=== PATIENT | male | born 1970 | race Hispanic/Latino ===

== ENCOUNTER 2020-01-14 14:00 | Inpatient (IN) | payer OTHER ==
[~2020-01-14] VITALS: Ht 170.2 cm; Wt 74.4 kg
[2020-01-14] VITALS (17 sets, daily range): BP systolic 87–122; BP diastolic 45–67
[2020-01-14 14:40] LABS: BASOPHILS % (AUTO) 0.3 % (0.0-5.0); EOSINOPHILS % (AUTO) 0.2 % (0.0-8.0); HEMATOCRIT 24.6 % (42-54); LYMPHOCYTES % (AUTO) 20.2 % (21.0-51.0); MEAN CORPUSCULAR HEMOGLOBIN 31.8 pg (27.0-33.0); MEAN CORPUSCULAR HGB CONC 32.9 g/dL (32.0-36.0); MEAN CORPUSCULAR VOLUME 96.5 fL (79-99); MONOCYTES % (AUTO) 8.6 % (3.0-13.0); NEUTROPHILS % (AUTO) 68.8 % (40.0-77.0); NUCLEATED RED BLOOD CELLS 0.2 % (0.0-0.19); PLATELET COUNT (AUTO) 227 K/uL (130-400); RED BLOOD CELL COUNT(AUTO) 2.55 MIL/uL (4.50-6.20); RED CELL DISTRIBUTION WIDTH 16.4 % (11.0-15.5); WHITE BLOOD COUNT (AUTO) 18.2 K/uL (4.8-10.8)
[2020-01-14 14:51] LABS: INR 1.18 (0.85-1.15); PARTIAL THROMBOPLASTIN TIME 26.7 SEC (26.3-35.5); PROTHROMBIN TIME 12.7 SEC (9.6-11.6)
[2020-01-14] MEDS ORDERED: ONDANSETRON HCL 4 MG/2 ML VIAL ONE ×2 (14:52→16:32)
[2020-01-14] MEDS ORDERED: PANTOPRAZOLE 40 MG/VIAL ONE (14:53)
[2020-01-14] MEDS ORDERED: PHYTONADIONE 10 MG/1 ML AMP ONE (14:53)
[2020-01-14] MEDS ORDERED: CEFTRIAXONE SODIUM 1 GM ONE (14:53)
[2020-01-14 14:54] LABS: ALBUMIN 2.2 g/dL (3.5-5.0); ALCOHOL, BLOOD < 3 mg/dL (0-10); AMMONIA 32 umol/L (11-32); ASPARTATE AMINOTRANSFERASE 132 U/L (10-37); BILIRUBIN,TOTAL 1.4 mg/dL (0.2-1.0); CARBON DIOXIDE 23 mmol/L (21-32); CHLORIDE 102 mmol/L (101-111); CREATINE KINASE, TOTAL 86 U/L (21-232); CREATININE 1.5 mg/dL (0.5-1.5); GLOMERULAR FILTR. RATE CALC 53 mL/min (>60); LIPASE 83 U/L (114-286); SODIUM SERUM 134 mmol/L (136-145); TOTAL PROTEIN, SERUM 5.6 g/dL (6.0-8.3); UREA NITROGEN, BLOOD 30 mg/dL (7-18)
[2020-01-14] MEDS ORDERED: SODIUM CHLORIDE 0.9% 100 ML IV ONE ×2 (14:54)
[2020-01-14 14:57] LABS: GLUCOSE,RANDOM 487 mg/dL (70-105)
[2020-01-14] MEDS ORDERED: OCTREOTIDE ACETATE 100 MCG/ML AMP IVP SCH (15:00)
[2020-01-14] MEDS ORDERED: OCTREOTIDE 1,250 MCG /NS 250ML (DRIP) IV SCH ×2 (15:00)
[2020-01-14] MEDS ORDERED: METOCLOPRAMIDE 10 MG/2 ML VIAL ONE (15:25)
[2020-01-14] MEDS ORDERED: OCTREOTIDE ACETATE 100 MCG/ML AMP ONE (15:26)
[2020-01-14 15:43] LABS: ALANINE AMINOTRANSFERASE 103 U/L (12-78)
[2020-01-14 16:11] LABS: APPEARANCE,URINE CLEAR (CLEAR); BILIRUBIN,URINE NEGATIVE (NEGATIVE); COLOR,URINE YELLOW (YELLOW); GLUCOSE, URINE (UA) >=1000 mg/dL (NEGATIVE); KETONES,URINE NEGATIVE (NEGATIVE); LEUKOCYTE ESTERASE ,URINE NEGATIVE (NEGATIVE); NITRATE,URINE NEGATIVE (NEGATIVE); OCCULT BLOOD,URINE NEGATIVE (NEGATIVE); PROTEIN,URINE NEGATIVE (NEGATIVE); UROBILINOGEN,URINE 0.2 mg/dL (0.2-1.0)
[2020-01-14 16:30] LABS: BACTERIA,URINE Rare /HPF (None Seen); RBC,URINE 0-1 /HPF (0-1); SQUAMOUS EPITHELIAL CELL,UR Rare /HPF (0-2); WBC,URINE 0-1 /HPF (0-1)
[2020-01-14] MEDS ORDERED: PROPOFOL 10 MG/ML 20ML VIAL IV ONE (16:32)
[2020-01-14] MEDS ORDERED: MIDAZOLAM HCL 1 MG/ML 2ML VIAL ONE (16:32)
[2020-01-14] MEDS ORDERED: LIDOCAINE HCL 1% 20 ML VIAL ONE (16:32)
[2020-01-14] MEDS ORDERED: FENTANYL CITRATE PF 50 MCG/1 ML 2ML VIAL ONE (16:32)
[2020-01-14] MEDS ORDERED: SUCCINYLCHOLINE CHLORIDE 20 MG/ML 10 ML VIAL ONE (16:33)
[2020-01-14] MEDS: INSULIN HUMULIN R 100 UNIT/ML 3ML SQ SCH (18:00)
[2020-01-14] MEDS ORDERED: ONDANSETRON HCL 4 MG/2 ML VIAL IV PRN (18:00)
[2020-01-14] MEDS ORDERED: LACTULOSE 20 GM/30 ML UDCUP PO PRN (18:00)
[2020-01-14] MEDS ORDERED: PANTOPRAZOLE SODIUM 80 MG in SODIUM CHLORIDE 0.9% 100 ML IV SCH (18:00)
[2020-01-14] MEDS ORDERED: OCTREOTIDE ACETATE 1,250 MCG in SODIUM CHLORIDE 0.9% 250 ML IV SCH (18:00)
[2020-01-14 18:18] LABS: HEMOGLOBIN A1C 9.7 % (4.0-6.0)
[2020-01-14] MEDS: ZOSYN 3.375GM+NS 50ML 50 ML IV SCH (20:00)
[2020-01-14 20:34] LABS: HEMATOCRIT 20.7 % (42-54)
[2020-01-14] MEDS: SODIUM CHLORIDE 0.9% 1000ML 1,000 ML IV SCH (21:00)
[2020-01-14] MEDS ORDERED: SODIUM CHLORIDE 0.9% 500ML 500 ML IV ONE (21:08)
[2020-01-14 21:13] LABS: ABG BASE EXCESS -0.4 mmol/L (-2.0-3.0); ABG OXYGEN SATURATION 95.7 % (95.0-99.0); ABG PCO2 34 mmHg (35-48)
[2020-01-15] VITALS (7 sets, daily range): BP systolic 90–97; BP diastolic 53–68
[2020-01-15] MEDS: SODIUM CHLORIDE 0.9% 1000ML 1,000 ML IV SCH ×10 (03:43→16:53)
[2020-01-15 04:23] LABS: BASOPHILS % (AUTO) 0.6 % (0.0-5.0); EOSINOPHILS % (AUTO) 1.3 % (0.0-8.0); HEMATOCRIT 22.2 % (42-54); LYMPHOCYTES % (AUTO) 40.6 % (21.0-51.0); MEAN CORPUSCULAR HEMOGLOBIN 30.6 pg (27.0-33.0); MEAN CORPUSCULAR HGB CONC 32.4 g/dL (32.0-36.0); MEAN CORPUSCULAR VOLUME 94.5 fL (79-99); MONOCYTES % (AUTO) 7.8 % (3.0-13.0); NEUTROPHILS % (AUTO) 48.3 % (40.0-77.0); NUCLEATED RED BLOOD CELLS 0.2 % (0.0-0.19); PLATELET COUNT (AUTO) 139 K/uL (130-400); RED BLOOD CELL COUNT(AUTO) 2.35 MIL/uL (4.50-6.20); RED CELL DISTRIBUTION WIDTH 15.9 % (11.0-15.5); WHITE BLOOD COUNT (AUTO) 12.5 K/uL (4.8-10.8)
[2020-01-15 04:49] LABS: ALBUMIN 1.9 g/dL (3.5-5.0); BILIRUBIN,TOTAL 1.3 mg/dL (0.2-1.0); CRP QUANTITATIVE 16.5 mg/L (0.00-9.0); TOTAL PROTEIN, SERUM 4.6 g/dL (6.0-8.3)
[2020-01-15] MEDS ORDERED: LACTULOSE 20 GM/30 ML UDCUP PO SCH (05:30)
[2020-01-15] MEDS: INSULIN HUMULIN R 100 UNIT/ML 3ML SQ SCH ×4 (06:00→18:04)
[2020-01-15] MEDS: ZOSYN 3.375GM+NS 50ML 50 ML IV SCH ×2 (06:38→18:04)
[2020-01-15] MEDS ORDERED: LORAZEPAM 2 MG/ML 1 ML VIAL IVP PRN ×2 (09:15)
[2020-01-15] MEDS ORDERED: CHLORDIAZEPOXIDE HCL 25 MG CAP PO PRN ×2 (09:15)
[2020-01-15] MEDS ORDERED: ONDANSETRON HCL 4 MG/2 ML VIAL IV PRN (09:15)
[2020-01-15] MEDS ORDERED: COMPOUND IV REFRIGERATED 1 EACH IVSOLN MISC PRN (09:15)
[2020-01-15] MEDS ORDERED: PROMETHAZINE HCL 25 MG TABLET PO PRN (09:15)
[2020-01-15] MEDS ORDERED: PHARMACY COMMUNICATION MISC PRN (09:15)
[2020-01-15] MEDS: PANTOPRAZOLE SODIUM 40 MG TABLET.DR PO SCH ×2 (09:56→20:36)
[2020-01-15 18:04] LABS: HEMATOCRIT 22.5 % (42-54)
[2020-01-15] MEDS: LACTULOSE 20 GM/30 ML UDCUP PO SCH (20:36)
[2020-01-16] VITALS: BP 103/67
[2020-01-16 00:41] LABS: HEMATOCRIT 22.3 % (42-54)
[2020-01-16 04:53] LABS: BASOPHILS % (AUTO) 0.7 % (0.0-5.0); EOSINOPHILS % (AUTO) 2.3 % (0.0-8.0); HEMATOCRIT 21.1 % (42-54); LYMPHOCYTES % (AUTO) 37.4 % (21.0-51.0); MEAN CORPUSCULAR HEMOGLOBIN 30.9 pg (27.0-33.0); MEAN CORPUSCULAR HGB CONC 32.7 g/dL (32.0-36.0); MEAN CORPUSCULAR VOLUME 94.6 fL (79-99); MONOCYTES % (AUTO) 9.1 % (3.0-13.0); NEUTROPHILS % (AUTO) 49.5 % (40.0-77.0); NUCLEATED RED BLOOD CELLS 0.3 % (0.0-0.19); PLATELET COUNT (AUTO) 134 K/uL (130-400); RED BLOOD CELL COUNT(AUTO) 2.23 MIL/uL (4.50-6.20); RED CELL DISTRIBUTION WIDTH 15.9 % (11.0-15.5); WHITE BLOOD COUNT (AUTO) 7.3 K/uL (4.8-10.8)
[2020-01-16 05:19] LABS: ALBUMIN 1.9 g/dL (3.5-5.0); BILIRUBIN,TOTAL 1.6 mg/dL (0.2-1.0); POTASSIUM 3.3 mmol/L (3.5-5.1); TOTAL PROTEIN, SERUM 4.8 g/dL (6.0-8.3)
[2020-01-16 05:27] VITALS: BP 96/69
[2020-01-16] MEDS: ZOSYN 3.375GM+NS 50ML 50 ML IV SCH ×2 (05:46→21:35)
[2020-01-16] MEDS: SODIUM CHLORIDE 0.9% 1000ML 1,000 ML IV SCH ×3 (05:46→19:54)
[2020-01-16] MEDS: INSULIN HUMULIN R 100 UNIT/ML 3ML SQ SCH ×5 (06:00→21:34)
[2020-01-16] MEDS ORDERED: SODIUM CHLORIDE 0.9% 250 ML IV ONE (06:11)
--- NOTE | 2020-01-16 06:30 | NUR ---
HEMOGLOBIN 6.9, STARTED 1 UNIT OF PRBCs.
--- NOTE | 2020-01-16 06:50 | NUR ---
PT CONTINUING WITH BLOOD TRANSFUSION, NO ADVERSE REACTIONS NOTED. VITALS WNL.
--- NOTE | 2020-01-16 07:15 | NUR ---
ASSESSMENT PT [id number] NO COMPLAINTS OF PAIN , NO SOB, NO NEURO DEFECTS, BLOOD IS STILL INFUSING WILL CONTINUE TO MONITOR PATIENT.
[2020-01-16 08:15] LABS: HEPATITIS A ANTIBODY IGM Negative (Negative); HEPATITIS B CORE IGM Negative (Negative); HEPATITIS Bs ANTIGEN SCREEN P Negative (Negative)
[2020-01-16] MEDS: FOLIC ACID 1 MG TABLET PO SCH (09:07)
[2020-01-16] MEDS: MULTIVITAMIN TABLET PO SCH (09:07)
[2020-01-16] MEDS: LACTULOSE 20 GM/30 ML UDCUP PO SCH ×2 (09:08→21:31)
[2020-01-16] MEDS: PANTOPRAZOLE SODIUM 40 MG TABLET.DR PO SCH ×2 (09:08→21:33)
[2020-01-16] MEDS ORDERED: POTASSIUM CHLORIDE 10% ELIXIR 20 MEQ/15 ML UDCUP PO PRN (10:00)
[2020-01-16] MEDS ORDERED: POTASSIUM CHLORIDE 20MEQ/100ML 100 ML IV PRN (10:00)
[2020-01-16] MEDS ORDERED: LIDOCAINE HCL-MPF 1% 2ML VIAL IV PRN (10:00)
[2020-01-16] MEDS: POTASSIUM CHLORIDE 20 MEQ ERTAB PO PRN ×2 (10:40→22:45)
[2020-01-16 12:00] VITALS: BP 107/70
[2020-01-16 12:19] LABS: HEMATOCRIT 24.5 % (42-54)
[2020-01-16] MEDS ORDERED: PHARMACY COMMUNICATION MISC SCH (15:30)
[2020-01-16 16:00] VITALS: BP 126/75
--- NOTE | 2020-01-16 16:05 | NUR ---
CM NOTE WENT TO DO IA EARLIER, COINCIDED W DR. DIANA VISIT, WILL FOLLOW UP LATER. PT AWAKE AND TALKATIVE IN NO APPARENT DISTRESS S/P BANDNG OF VARICIES, DETAILED CM ASSESSMENT DEFERRED AT THIS TIME -1WILL FOLLOW UP IN AM FOR IA
[2020-01-16 19:33] VITALS: BP 107/63
[2020-01-16 23:27] VITALS: BP 114/79
[2020-01-17 04:04] VITALS: BP 104/65
[2020-01-17 05:39] LABS: BASOPHILS % (AUTO) 0.4 % (0.0-5.0); EOSINOPHILS % (AUTO) 2.1 % (0.0-8.0); HEMATOCRIT 24.3 % (42-54); LYMPHOCYTES % (AUTO) 32.8 % (21.0-51.0); MEAN CORPUSCULAR HEMOGLOBIN 30.5 pg (27.0-33.0); MEAN CORPUSCULAR HGB CONC 33.3 g/dL (32.0-36.0); MEAN CORPUSCULAR VOLUME 91.4 fL (79-99); MONOCYTES % (AUTO) 10.2 % (3.0-13.0); NEUTROPHILS % (AUTO) 53.5 % (40.0-77.0); PLATELET COUNT (AUTO) 120 K/uL (130-400); RED BLOOD CELL COUNT(AUTO) 2.66 MIL/uL (4.50-6.20); RED CELL DISTRIBUTION WIDTH 15.7 % (11.0-15.5); WHITE BLOOD COUNT (AUTO) 5.2 K/uL (4.8-10.8)
[2020-01-17] MEDS: INSULIN HUMULIN R 100 UNIT/ML 3ML SQ SCH ×3 (06:00→17:38)
[2020-01-17 06:04] LABS: BILIRUBIN,TOTAL 2.7 mg/dL (0.2-1.0); POTASSIUM 3.3 mmol/L (3.5-5.1); TOTAL PROTEIN, SERUM 4.9 g/dL (6.0-8.3)
[2020-01-17] MEDS: SODIUM CHLORIDE 0.9% 1000ML 1,000 ML IV SCH ×2 (06:38→16:15)
[2020-01-17] MEDS: POTASSIUM CHLORIDE 20 MEQ ERTAB PO PRN ×3 (06:50→18:54)
[2020-01-17] MEDS: CEFTRIAXONE SODIUM 1 GM IVP SCH (08:25)
[2020-01-17] MEDS: PANTOPRAZOLE SODIUM 40 MG TABLET.DR PO SCH ×2 (08:26→21:53)
[2020-01-17] MEDS: FOLIC ACID 1 MG TABLET PO SCH (08:26)
[2020-01-17] MEDS: MULTIVITAMIN TABLET PO SCH (08:26)
[2020-01-17] MEDS: LACTULOSE 20 GM/30 ML UDCUP PO SCH ×2 (08:26→21:00)
[2020-01-17 09:36] VITALS: BP 107/61
[2020-01-17 12:39] VITALS: BP 128/73
[2020-01-17 16:12] LABS: HEMATOCRIT 26.5 % (42-54)
[2020-01-17 16:32] VITALS: BP 106/63
--- NOTE | 2020-01-17 18:35 | NUR ---
PATIENT STATES HE SHOULD BE TAKING TWO PRESCRIBED MEDICATIONS, ONE FOR DIABETES AND 1 FOR PTSD. HOWEVER HE STATES HE DOES NOT GO BUY THEM AND ONLY DOES SO WHEN HIS FRIEND REMINDS HIM TO BUY THEM. REPORTED OFF TO ANASTASIIA CORTÉS PRIMARY NURSE.
[2020-01-17 20:07] VITALS: BP 105/63
[2020-01-17] MEDS: PROPRANOLOL HCL 10 MG TAB PO SCH (21:53)
[2020-01-17 23:58] VITALS: BP 93/57
[2020-01-18] VITALS (7 sets, daily range): BP systolic 80–109; BP diastolic 48–72
[2020-01-18] MEDS: SODIUM CHLORIDE 0.9% 1000ML 1,000 ML IV SCH ×3 (01:54→20:43)
[2020-01-18 05:22] LABS: BASOPHILS % (AUTO) 0.5 % (0.0-5.0); EOSINOPHILS % (AUTO) 2.5 % (0.0-8.0); HEMATOCRIT 26.9 % (42-54); LYMPHOCYTES % (AUTO) 28.1 % (21.0-51.0); MEAN CORPUSCULAR HEMOGLOBIN 30.8 pg (27.0-33.0); MEAN CORPUSCULAR HGB CONC 33.8 g/dL (32.0-36.0); MEAN CORPUSCULAR VOLUME 91.2 fL (79-99); MONOCYTES % (AUTO) 10.8 % (3.0-13.0); NEUTROPHILS % (AUTO) 57.5 % (40.0-77.0); PLATELET COUNT (AUTO) 147 K/uL (130-400); RED BLOOD CELL COUNT(AUTO) 2.95 MIL/uL (4.50-6.20); RED CELL DISTRIBUTION WIDTH 15.1 % (11.0-15.5); WHITE BLOOD COUNT (AUTO) 6.3 K/uL (4.8-10.8)
[2020-01-18 05:44] LABS: BILIRUBIN,TOTAL 3.3 mg/dL (0.2-1.0); CREATININE 0.9 mg/dL (0.5-1.5); POTASSIUM 3.6 mmol/L (3.5-5.1); TOTAL PROTEIN, SERUM 5.1 g/dL (6.0-8.3)
[2020-01-18] MEDS: INSULIN HUMULIN R 100 UNIT/ML 3ML SQ SCH ×5 (06:00→21:29)
[2020-01-18] MEDS: MULTIVITAMIN TABLET PO SCH (08:23)
[2020-01-18] MEDS: PANTOPRAZOLE SODIUM 40 MG TABLET.DR PO SCH ×2 (08:23→20:43)
[2020-01-18] MEDS: FOLIC ACID 1 MG TABLET PO SCH (08:24)
[2020-01-18] MEDS: CEFTRIAXONE SODIUM 1 GM IVP SCH (08:24)
[2020-01-18] MEDS: PROPRANOLOL HCL 10 MG TAB PO SCH ×2 (08:24→20:43)
[2020-01-18] MEDS: LACTULOSE 20 GM/30 ML UDCUP PO SCH ×2 (08:25→20:43)
--- NOTE | 2020-01-18 17:06 | NUR ---
DR. DAS SENIOR PROJECT MANAGER EVALUATED THE PT ON BEDSIDE, NO CHANGES OR ORDERS AT THE MOMENT. PT WITH NO RESPIRATORY DISTRESS OR COMPLICATION.
[2020-01-18] MEDS: POTASSIUM CHLORIDE 20 MEQ ERTAB PO PRN (17:30)
[2020-01-19 00:16] VITALS: BP 101/62
--- NOTE | 2020-01-19 02:32 | NUR ---
ACTIVITY Pt up ad wanda,he states he's eating well and having normal stools.He said he's going home today.He didn't want his IVF be hooked up.
[2020-01-19 03:00] VITALS: BP 82/54
--- NOTE | 2020-01-19 04:00 | NUR ---
BP Pts bp 82/54,pt awake,alert,asymptomatic.Started a new iv to rt forearm,karli well.
[2020-01-19 04:38] LABS: BASOPHILS % (AUTO) 0.4 % (0.0-5.0); EOSINOPHILS % (AUTO) 2.3 % (0.0-8.0); HEMATOCRIT 26.7 % (42-54); LYMPHOCYTES % (AUTO) 30.4 % (21.0-51.0); MEAN CORPUSCULAR HEMOGLOBIN 30.4 pg (27.0-33.0); MEAN CORPUSCULAR HGB CONC 33.7 g/dL (32.0-36.0); MEAN CORPUSCULAR VOLUME 90.2 fL (79-99); MONOCYTES % (AUTO) 11.3 % (3.0-13.0); NEUTROPHILS % (AUTO) 55.1 % (40.0-77.0); PLATELET COUNT (AUTO) 157 K/uL (130-400); RED BLOOD CELL COUNT(AUTO) 2.96 MIL/uL (4.50-6.20); RED CELL DISTRIBUTION WIDTH 14.4 % (11.0-15.5); WHITE BLOOD COUNT (AUTO) 7.4 K/uL (4.8-10.8)
[2020-01-19 04:46] LABS: INR 1.14 (0.85-1.15); PARTIAL THROMBOPLASTIN TIME 29.4 SEC (26.3-35.5); PROTHROMBIN TIME 12.2 SEC (9.6-11.6)
[2020-01-19 05:03] LABS: BILIRUBIN,TOTAL 3.2 mg/dL (0.2-1.0); POTASSIUM 3.8 mmol/L (3.5-5.1); TOTAL PROTEIN, SERUM 5.3 g/dL (6.0-8.3)
[2020-01-19] MEDS: INSULIN HUMULIN R 100 UNIT/ML 3ML SQ SCH ×3 (06:00→16:05)
[2020-01-19] MEDS: SODIUM CHLORIDE 0.9% 1000ML 1,000 ML IV SCH ×2 (07:54→16:05)
[2020-01-19 08:00] VITALS: BP 83/53
[2020-01-19] MEDS: MULTIVITAMIN TABLET PO SCH (08:39)
[2020-01-19] MEDS: CEFTRIAXONE SODIUM 1 GM IVP SCH (08:39)
[2020-01-19] MEDS: LACTULOSE 20 GM/30 ML UDCUP PO SCH (08:39)
[2020-01-19] MEDS: PANTOPRAZOLE SODIUM 40 MG TABLET.DR PO SCH (08:40)
[2020-01-19] MEDS: PROPRANOLOL HCL 10 MG TAB PO SCH (08:40)
--- NOTE | 2020-01-19 11:08 | NUR ---
MET W/ PATIENT AT BEDSIDE FOR DC PLANNING FACE SHEET REVIEWED, STATES MOM'S ADDRESS ON FACE SHE[address] IS WHERE HE GETS HIS MAIL BUT HE JUST STAYS WITH FRIENDS FROM COUCH TO COUCH. STATES HAS [facility], FOLLOWS WITH [facility] FOR OTHER PSYCH MEDS, AND IS PROBABLY GOING TO USE, DOES NOT WAN T TO ADVISE THIS CM WHO IS PICKING HIM UP OR WHERE HE IS OGING. DISCUSSION RISK/BENEFIT OF CONNECTING TO AA MEMBERS RIGHT NOW. PHONE APPS FOR AA MEETING DISCUSSED WITH PATIENT AND SHOWED HIM HOW TO INSTALL ONHIS PHONE AND JOIN [facility] MEETINGS FOR ADDICTS/ALCOHOLICS, STATES HE IWLL TRY TO CONNECT WITH AA PEOPLE. PATIENT TO DC TODAY.[id number] Addendum: 01/21/20 at 2012 by DAVEY PERAZA RN CM Amended: Links added.
[2020-01-19 12:00] VITALS: BP 80/53
[2020-01-19] MEDS ORDERED: PROP10TA10 PO (12:49)
[2020-01-19] MEDS ORDERED: PANT40TA PO (12:49)
[2020-01-19 16:00] VITALS: BP 82/45
== END 2020-01-19 17:30 | disposition home or self-care (01) | DRG 871 ==
LOC: EDH 14:00 → EDHIP 14:01 → 4DH 19:34
PROVIDERS: ADMIT Internal Medicine; ATTEND Internal Medicine
PROC: 06L38CZ Occlusion of Esophageal Vein with Extraluminal Device, Via Natural or Artificial Opening Endoscopic (ICD-10-PCS; principal; 2020-01-14)
PROC: 30233N1 Transfusion of Nonautologous Red Blood Cells into Peripheral Vein, Percutaneous Approach (ICD-10-PCS; 2020-01-14)
DX: A41.9 Sepsis, unspecified organism (principal); I85.11 Secondary esophageal varices with bleeding; D62 Acute posthemorrhagic anemia; N17.9 Acute kidney failure, unspecified; R65.20 Severe sepsis without septic shock; E11.22 Type 2 diabetes mellitus with diabetic chronic kidney disease; N18.9 Chronic kidney disease, unspecified; Z20.828 Contact with and (suspected) exposure to other viral communicable diseases; E87.6 Hypokalemia; K70.10 Alcoholic hepatitis without ascites; F10.10 Alcohol abuse, uncomplicated; Y90.0 Blood alcohol level of less than 20 mg/100 ml; K70.30 Alcoholic cirrhosis of liver without ascites; I86.4 Gastric varices; K31.89 Other diseases of stomach and duodenum; Z79.899 Other long term (current) drug therapy
CPT/HCPCS: 36415; 36430; 36600; 43244; 71045; 76700; 80053; 80074; 81001; 82140; 82270; 82550; 82803; 82948; 83036; 83605; 83690; 83735; 84105; 84145; 84443; 85014; 85018; 85025; 85610; 85730; 86140; 86701; 86850; 86900; 86901; 86922; 86923; 87040; 87390; 87426; 87902; 93005; 99291; C9113; G0378; J0330; J0696; J1815; J2250; J2354; J2405; J2543; J2704; J2765; J3010; J3430; J7030; J7040; J7050; P9016